=== PATIENT | female | born 1965 ===

== ENCOUNTER 2018-03-24 10:25 | Emergency (ER) | payer MEDICAID ==
[2018-03-24 10:45] VITALS: RESP 16
--- NOTE | 2018-03-24 11:10 | ED PDOC ---
HPI: Chest Pain Time Seen by Provider: 03/24/18 10:45 Chief Complaint (Nursing): Chest Pain Chief Complaint (Provider): Chest Pain History Per: Patient History/Exam Limitations: no limitations Onset/Duration Of Symptoms: Hrs (this morning) Current Symptoms Are (Timing): Still Present Additional Complaint(s): 52 year old female, with a past medical history of dagoberto thyroid, presents to the ED complaining of tactile fever since Monday. Early morning , patient had constant chest pain all over her chest involving her ribs and worse with movement. She felt electric shocks throughout her body and also had body aches. She indicates having numbness to her arms and legs along with nausea and urinary frequency. Denies SOB, abdominal pain, vomiting, diarrhea, dysuria, sick contacts, recent travel, and cough. Patient takes synthroid medication. Patient adds that she has had similar symptoms several months ago and was evaluated at 3 different hospitals, [facility], [facility], and [facility] and source of the fever was never found. Patient states that she followed up with her primary care doctor who did several testing which were all normal. PMD: Frieda Yadav Past Medical History Reviewed: Historical Data, Nursing Documentation, Vital Signs Vital Signs: Last Vital Signs Temp 98.1 F 03/24/18 13:38 Pulse 65 03/24/18 13:38 Resp 16 03/24/18 13:38 BP 122/78 03/24/18 13:38 Pulse Ox 100 03/24/18 13:38 - Medical History Other PMH: Dagoberto Thyroid - Surgical History Surgical History: No Surg Hx - Family History Family History: States: Unknown Family Hx - Home Medications Home Medications: Ambulatory Orders Medication Instructions Recorded Ibuprofen [Motrin Tab] 600 mg PO QID PRN #20 tab 03/24/18 Metoclopramide HCl [Reglan] 10 mg PO QID PRN #20 tablet 03/24/18 - Allergies Allergies/Adverse Reactions: Allergies Allergy/AdvReac Type Severity Reaction Status Date / Time gluten Allergy Mild RASH Verified 03/24/18 11:04 Review of Systems ROS Statement: Except As Marked, All Systems Reviewed And Found Negative Constitutional: Positive for: Fever, Other (Body ache) Cardiovascular: Positive for: Chest Pain Respiratory: Negative for: Cough Gastrointestinal: Positive for: Nausea. Negative for: Vomiting, Diarrhea Genitourinary Female: Positive for: Frequency Neurological: Positive for: Numbness Physical Exam - Reviewed Nursing Documentation Reviewed: Yes Vital Signs Reviewed: Yes - Physical Exam Comments: GENERAL APPEARANCE: Patient is awake, alert, oriented x 3, in no acute distress. Well appearing. SKIN: Warm, dry; (-) cyanosis, (-) rash. EYES: (-) conjunctival pallor, (-) scleral icterus, (-) conjunctival hemorrhage. ENMT: Mucous membranes moist. TMs: (-) erythema. Airway patent: (-) stridor. Pharynx: (-) erythema, (-) exudate. NECK: (-) tenderness, (-) stiffness, (-) meningismus, (-) lymphadenopathy. CHEST AND RESPIRATORY: (-) accessory muscle use. Lungs: (-) rales, (-) rhonchi, (-) wheezes, (-) rub; breath sounds equal bilaterally. HEART AND CARDIOVASCULAR: (-) irregularity; (-) murmur, (-) gallop, (-) rub. ABDOMEN AND GI: Soft; (-) tenderness, (-) guarding; (-) organomegaly; (-) mass ; (+) mild b/l CVA tenderness. EXTREMITIES: (-) deformity; (-) cellulitis, (-) lymphangitis; (-) subungual hemorrhage; (-) edema. NEURO AND PSYCH: Mental status as above; (-) focal findings. - Laboratory Results Result Diagrams: 03/24/18 11:33 03/24/18 11:33 - ECG ECG Rhythm: Positive for: Sinus Rhythm (normal). Negative for: ST/T Changes Rate: 64 O2 Sat by Pulse Oximetry: 99 (RA) Pulse Ox Interpretation: Normal Medical Decision Making Medical Decision Making: Initial Impression: Chest pain Initial Plan: --CMP --Troponin --ED urine --ED urine dipstick --CBC --Chest X-ray --Sodium chloride 1000mL IV --Toradol 30mg IV --Zofran 4mg IV CXR : NAD, as read by PA EKG : NSR at 64 bpm, no acute ST changes, as read by EILEEN Labs reviewed and wnl, wbc nl, trop (-), Udip (-) for infection. On reevaluation, patient is resting comfortably in bed in no acute distress. Repeat vital signs are stable, patient still afebrile, not tachycardic. On exam , patient remains awake, alert, oriented 3, neck is supple with no signs of meningismus, repeat neuro exam is within normal limits with no focal findings. Diagnostic results discussed with the patient in great detail. Based on history, exam and diagnostic results plan will be for outpatient follow up. Advised to follow up with primary care physician in 1-2 days without fail. Advised to take medication as prescribed. Return to the emergency room at any time for any new or worsening symptoms. Patient states she fully agrees with and understands discharge instructions. States that she agrees with the plan and disposition. Verbalized and repeated discharge instructions and plan. I have given the patient opportunity to ask any additional questions. Scribe Attestation: Documented by Richard Squires acting as a scribe for Nan ARELLANO. Provider Scribe Attestation: All medical record entries made by the Scribe were at my direction and personally dictated by me. I have reviewed the chart and agree that the record accurately reflects my personal performance of the history, physical exam, medical decision making, and the department course for this patient. I have also personally directed, reviewed, and agree with the discharge instructions and disposition. Disposition - Clinical Impression Clinical Impression: Fever, Chest pain, Myalgia - Patient ED Disposition Is Patient to be Admitted: No Counseled Patient/Family Regarding: Studies Performed, Diagnosis, Need For Followup - Disposition Disposition: Routine/Home Disposition Time: 13:30 Condition: STABLE Additional Instructions: Thank you for letting us take care of you today. You were treated for fever, chest pain, myalgias. The emergency medical care you received today was directed at your acute symptoms. If you were prescribed any medication, please fill it and take as directed. It may take several days for your symptoms to resolve. Return to the Emergency Department if your symptoms worsen, do not improve, or if you have any other problems. Please contact your doctor in 2 days for re-evaluation and follow up. Bring any paperwork you were given at discharge with you along with any medications you are taking to your follow up visit. Our treatment cannot replace ongoing medical care by a primary care provider (PCP) outside of the emergency department. Thank you for allowing the [facility] team to be part of your care today. 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
[2018-03-24] MEDS ORDERED: Sodium Chloride 0.9% 1,000 ML IV SCH (11:30)
[2018-03-24 11:59] LABS: ALB/GLOB RATIO 1.3 (1.0-2.1); ALBUMIN 4.7 g/dL (3.5-5.0); ALT/SGPT 28 U/L (9-52); AST/SGOT 26 U/L (14-36); BLOOD UREA NITROGEN 12 mg/dl (7-17); CALCIUM 9.8 mg/dL (8.4-10.2); GFR NON-AFRICAN AMERICAN > 60
[2018-03-24 12:04] LABS: BASO % 0.2 % (0.0-2.0); EOS # 0.1 K/uL (0.0-0.7); EOS % 1.1 % (0.0-4.0); LYMPH # 1.8 K/uL (1.0-4.3); LYMPH % 28.4 % (20.0-40.0); MEAN CELL VOLUME 81.7 fl (81.0-99.0); MEAN CORPUSCULAR HEMOGLOBIN 27.7 pg (27.0-31.0); MEAN CORPUSCULAR HGB CONC 33.9 g/dL (33.0-37.0); MEAN PLATELET VOLUME 10.9 fl (7.2-11.7); MONO # 0.5 K/uL (0.0-0.8); MONO % 7.6 % (0.0-10.0); NEUT # 4.1 K/uL (1.8-7.0); NEUT % 62.7 % (50.0-75.0); NRBC % 0.1 % (0.0-0.0); RBC 5.05 Mil/uL (3.80-5.20); RED CELL DISTRIBUTION WIDTH 13.2 % (11.5-14.5); WHITE BLOOD COUNT 6.5 K/uL (4.8-10.8)
[2018-03-24 13:38] VITALS: BP 122/78; TEMP 98.1
--- NOTE | 2018-03-24 16:03 | RAD ---
Date of service: 03/24/2018 HISTORY: chest pain COMPARISON: Liver mass in [facility] adequately defined pacsNo prior. TECHNIQUE: Chest PA and lateral FINDINGS: LUNGS: No active pulmonary disease. PLEURA: No significant pleural effusion identified. No pneumothorax apparent. CARDIOVASCULAR: Normal. OSSEOUS STRUCTURES: No significant abnormalities. VISUALIZED UPPER ABDOMEN: Normal. OTHER FINDINGS: None. IMPRESSION: No active disease.
[2018-03-24 16:22] VITALS: PULSE 64; O2SAT 99
== END 2018-03-24 14:00 | disposition home or self-care (01) ==
LOC: H.ER 10:25
DX: R50.9 Fever, unspecified (principal); R07.9 Chest pain, unspecified; M79.1 Myalgia
CPT/HCPCS: 71046; 80053; 81025; 84484; 85025; 96360; 96374; 99284; J1885; J2405; J7030